=== PATIENT | female | born 1960 | race Caucasian/White ===

== ENCOUNTER → 2016-10-07 | Outpatient (REF) | payer MEDICARE | LOC: M LAB REF 10:33 | PROVIDERS: ATTEND Internal Medicine Medical Oncology | DX: D75.1 Secondary polycythemia (principal) ==

== ENCOUNTER → 2017-07-08 | Outpatient (CLI) | payer MEDICARE, MEDICAID ==
--- NOTE | 2017-07-08 15:47 | REP ---
Duplex extremity venous ultrasound: Left lower extremity. History: Left calf pain. Findings: The deep veins are anechoic and fully compressible from the groin to the popliteal fossa in the left lower extremity. Color flow imaging is homogeneous. Spectral Doppler interrogation demonstrates intact respiratory variation in flow and normal manual augmentation of flow. There is no evidence of deep vein thrombosis. There is a complex left medial popliteal fluid collection containing internal debris consistent with a Kay's cyst. This measures 6.7 x 3.5 x 5.6 cm. Impression: 6.7 cm Kay's cyst, otherwise negative left lower extremity duplex venous ultrasound. No evidence of deep vein thrombosis. Signed by King Tellez MD 07/08/2017 03:39 P
== END ==
LOC: M RAD 14:25
PROVIDERS: ATTEND Internal Medicine Medical Oncology
DX: M71.22 Synovial cyst of popliteal space [Baker], left knee (principal)

== ENCOUNTER → 2017-08-11 | Outpatient (REF) | payer MEDICARE, MEDICAID ==
[2017-08-14 00:07] LABS: F8 ACTIVITY FOR F8 PANEL 121 % (57-163); F8 ACTIVITY vWB FOR F8 PANEL 147 % (50-200); F8 ANTIGEN FOR F8 PANEL 255 % (50-200); INTERPRETATION: Note (.)
== END ==
LOC: M LAB REF 13:13
PROVIDERS: ATTEND Internal Medicine Medical Oncology
DX: D68.0 Von Willebrand disease (principal)

== ENCOUNTER → 2017-10-21 | Outpatient (CLI) | payer MEDICARE, MEDICAID | LOC: M ONCR 13:18 | DX: C50.911 Malignant neoplasm of unspecified site of right female breast (principal) | CPT/HCPCS: G0463 ==

== ENCOUNTER 2017-11-17 09:38 | Outpatient (RCR) | payer MEDICARE, MEDICAID | END 2017-11-26 | LOC: M ONCR 09:38 | DX: C50.411 Malignant neoplasm of upper-outer quadrant of right female breast (principal) | CPT/HCPCS: 77300 ==

== ENCOUNTER → 2017-11-17 | Outpatient (CLI) | payer MEDICARE, MEDICAID | LOC: M RAD 09:06 | DX: C50.911 Malignant neoplasm of unspecified site of right female breast (principal) ==

== ENCOUNTER 2017-11-27 10:39 | Outpatient (RCR) | payer MEDICARE, MEDICAID | END 2017-12-27 | LOC: M ONCR 10:39 | DX: C50.411 Malignant neoplasm of upper-outer quadrant of right female breast (principal); Z88.2 Allergy status to sulfonamides | CPT/HCPCS: 77300 ==

== ENCOUNTER → 2018-01-21 | Outpatient (CLI) | payer MEDICARE, MEDICAID | LOC: M ONCR 15:23 | DX: Z08 Encounter for follow-up examination after completed treatment for malignant neoplasm (principal); Z85.3 Personal history of malignant neoplasm of breast; Z92.3 Personal history of irradiation | CPT/HCPCS: G0463 ==

== ENCOUNTER → 2018-08-18 | Outpatient (CLI) | payer MEDICARE, MEDICAID | LOC: M ONCR 09:04 | DX: C50.911 Malignant neoplasm of unspecified site of right female breast (principal); Z92.3 Personal history of irradiation; Z87.891 Personal history of nicotine dependence | CPT/HCPCS: G0463 ==

== ENCOUNTER → 2021-06-28 | Outpatient (CLI) | payer MEDICARE, MEDICAID ==
[~2021-06-28] MED LIST: ADV250INH INH; ALLE10TA62 PO; AMLO1TAB25 PO; CALC-211 PO; CALC600T31 PO; CYMB1CAP4 PO; D400400C PO; FEMA2.5T4 PO; FOLI1TAB11 PO; HUMI40KI SC; INVO300T PO; JARD1TAB3 PO; LANTINJ4 INJ; LANTINJ4 SC; METH2.5T48 PO; OMEP20TA2 PO; PROAAER10 INH; QUIN1TAB4 PO; REPA140I2 SC; TOPR100T PO; TRAM50TA2 PO; TREX7.5T PO; VITATAB54 PO; ZETI10TA16 PO; ZYRT10CA PO
[2021-06-28 16:01] VITALS: BP 148/70
--- NOTE | 2021-06-28 16:10 | REP ---
INDICATION: LEFT BREAST MASS. COMPARISON: None. Comparison mammography June 12, 2021. TECHNIQUE: Craniocaudal and mediolateral views of the left breast are obtained post biopsy. This mammogram was interpreted with the aid of an FDA-approved computer-aided detection system. FINDINGS: Cc and mediolateral views of the left breast demonstrate the needle biopsy marker clip in good position apparently within the soft tissue nodular density in the lateral aspect of the left breast. IMPRESSION: Marker clip in good position. <Electronically signed by Anderson Tellez > 06/28/21 [id number]
--- NOTE | 2021-06-28 16:50 | REP ---
INDICATION: LEFT BREAST MASS. COMPARISON: None. TECHNIQUE: The procedure was performed by Aysha Quinteros [facility], under the direct supervision of Dr. Tellez. The risks and benefits of the procedure were explained to the patient and an informed consent was obtained both verbally and written. Directly prior to the start of the procedure a formal time-out was completed in the procedure room. FINDINGS: Using ultrasound guidance the left breast mass was localized. The skin was prepped and draped in a sterile fashion. Twenty mL of buffered lidocaine was used as a local anesthetic. Using ultrasound guidance a 14 gauge [employer] Marquee coaxial needle biopsy system was inserted and advanced into the left breast mass. Six core biopsy specimens were obtained and sent to pathology for further analysis. A shape 3 marker clip was placed at the biopsy site. The patient tolerated the procedure well and there were no immediate complications. After the appropriate amount of monitored convalescence the patient was discharged from the department. IMPRESSION: 1. Ultrasound-guided left breast biopsy and micro clip placement. <Electronically signed by Aysha Quinteros > 06/28/21 [id number] <Electronically signed by Anderson Tellez > 06/28/21 1642
== END ==
LOC: M WHCPRO 07:50
PROVIDERS: ATTEND Surgery
DX: C50.412 Malignant neoplasm of upper-outer quadrant of left female breast (principal); C50.611 Malignant neoplasm of axillary tail of right female breast

== ENCOUNTER → 2021-10-03 | Outpatient (CLI) | payer MEDICARE | LOC: M PLALAB 10:57 | PROVIDERS: ATTEND Surgery | DX: Z85.3 Personal history of malignant neoplasm of breast (principal) ==

== ENCOUNTER 2021-10-26 07:31 | Outpatient (RCR) | payer MEDICARE ==
[~2021-10-26 07:31] MED LIST changes: +VITATAB47 PO
[2021-11-01] MEDS ORDERED: AROM25TA PO (15:04)
== END 2021-10-29 ==
LOC: M ONCR 07:31
PROVIDERS: ATTEND General Practice
DX: C50.412 Malignant neoplasm of upper-outer quadrant of left female breast (principal)

== ENCOUNTER 2021-11-19 11:41 | Outpatient (RCR) | payer MEDICARE ==
[~2021-11-19 11:41] MED LIST changes: +AROM25TA PO
== END 2021-11-26 ==
LOC: M ONCR 11:41
PROVIDERS: ATTEND General Practice
DX: C50.412 Malignant neoplasm of upper-outer quadrant of left female breast (principal)

== ENCOUNTER → 2022-03-08 | Outpatient (CLI) | payer MEDICARE ==
[~2022-03-08] MED LIST changes: +PROHANCE 279.3MG/ML 15ML VIAL ONE
== END ==
LOC: M PLAIMG 12:17
PROVIDERS: ATTEND Surgery
DX: C50.912 Malignant neoplasm of unspecified site of left female breast (principal)
CPT/HCPCS: A9576; C8908

== ENCOUNTER → 2022-05-15 | Outpatient (CLI) | payer MEDICARE, OTHER, MEDICAID ==
[~2022-05-15] MED LIST changes: +POTA-151 PO; -PROHANCE 279.3MG/ML 15ML VIAL ONE; +REPA420I2; +VENL75TA2 PO
== END ==
LOC: M ONCR 09:00
PROVIDERS: ATTEND General Practice
DX: Z08 Encounter for follow-up examination after completed treatment for malignant neoplasm (principal); Z85.3 Personal history of malignant neoplasm of breast; K74.69 Other cirrhosis of liver; R23.2 Flushing; F17.210 Nicotine dependence, cigarettes, uncomplicated; M06.9 Rheumatoid arthritis, unspecified; Z88.0 Allergy status to penicillin; Z88.1 Allergy status to other antibiotic agents; Z88.2 Allergy status to sulfonamides; Z88.6 Allergy status to analgesic agent; Z88.8 Allergy status to other drugs, medicaments and biological substances; Z79.4 Long term (current) use of insulin; Z79.51 Long term (current) use of inhaled steroids; Z79.811 Long term (current) use of aromatase inhibitors; Z79.899 Other long term (current) drug therapy; Z91.040 Latex allergy status; Z91.041 Radiographic dye allergy status; Z91.048 Other nonmedicinal substance allergy status; Z92.3 Personal history of irradiation; Z90.49 Acquired absence of other specified parts of digestive tract

== ENCOUNTER → 2022-06-10 | Outpatient (CLI) | payer MEDICARE, MEDICAID | LOC: M WHC 08:20 | PROVIDERS: ATTEND Surgery | DX: C50.912 Malignant neoplasm of unspecified site of left female breast (principal) | CPT/HCPCS: 77066; G0279 ==

== ENCOUNTER → 2022-11-15 | Outpatient (CLI) | payer MEDICARE, MEDICAID ==
[~2022-11-15] MED LIST changes: +ALBU2TA PO; +B-12100011 SL; +LISI40TA4; +PANT40TA29; +PROB250C PO; +PROL60SO SC
== END ==
LOC: M ONCR 08:10
PROVIDERS: ATTEND General Practice
DX: C50.412 Malignant neoplasm of upper-outer quadrant of left female breast (principal); K74.60 Unspecified cirrhosis of liver; M06.9 Rheumatoid arthritis, unspecified; Z79.4 Long term (current) use of insulin; Z79.620 Long term (current) use of immunosuppressive biologic; Z79.811 Long term (current) use of aromatase inhibitors; Z88.0 Allergy status to penicillin; Z88.1 Allergy status to other antibiotic agents; Z88.6 Allergy status to analgesic agent; Z88.8 Allergy status to other drugs, medicaments and biological substances; Z88.5 Allergy status to narcotic agent; Z91.040 Latex allergy status; Z92.3 Personal history of irradiation

== ENCOUNTER → 2023-06-10 | Outpatient (CLI) | payer MEDICARE, MEDICAID ==
[~2023-06-10] MED LIST changes: -ALBU2TA PO; +ALBU2TAB13 PO; +EZET10TA58 PO; +GABA600T4 PO; -LISI40TA4; +LISI40TA4 PO; +METO1TAB32 PO; -PANT40TA29; +PANT40TA29 PO; +POTA-298 PO; +TIZA10TA PO; -ZETI10TA16 PO
== END ==
LOC: M WHC 13:34
PROVIDERS: ATTEND Nurse Practitioner Women's Health
DX: Z12.31 Encounter for screening mammogram for malignant neoplasm of breast (principal); Z85.3 Personal history of malignant neoplasm of breast
CPT/HCPCS: 77066; G0279

== ENCOUNTER → 2023-11-11 | Outpatient (CLI) | payer MEDICARE, MEDICAID ==
[~2023-11-11] MED LIST changes: +DEXC1MIS3; +FLUT1BLS5 INH; +GABA800T4 PO; +TIRZ2.5P SQ
== END ==
LOC: M ONCR 11:03
PROVIDERS: ATTEND General Practice
DX: C50.412 Malignant neoplasm of upper-outer quadrant of left female breast (principal); Z98.890 Other specified postprocedural states; Z90.49 Acquired absence of other specified parts of digestive tract; Z92.3 Personal history of irradiation; Z71.2 Person consulting for explanation of examination or test findings; Z79.811 Long term (current) use of aromatase inhibitors; Z79.85 Long-term (current) use of injectable non-insulin antidiabetic drugs; Z88.6 Allergy status to analgesic agent; Z88.0 Allergy status to penicillin; Z88.1 Allergy status to other antibiotic agents; Z88.2 Allergy status to sulfonamides; Z91.018 Allergy to other foods; Z91.040 Latex allergy status; Z88.8 Allergy status to other drugs, medicaments and biological substances; Z79.620 Long term (current) use of immunosuppressive biologic; Z79.899 Other long term (current) drug therapy

== ENCOUNTER 2023-11-19 13:06 | Day surgery (SDC) | payer MEDICARE, MEDICAID ==
[~2023-11-19] VITALS: Ht 165.1 cm; Wt 79.0 kg
[2023-11-19] MEDS: NS 1,000 ML IV ONE (13:56)
[2023-11-19] MEDS ORDERED: LIDOCAINE 2% 100MG/5ML SDV (FOR ANES.) As Ordered ONE (15:21)
[2023-11-19] MEDS ORDERED: propofoL 200 MG/20 ML VIAL As Ordered ONE (15:21)
[2023-11-19 16:23] VITALS: BP 139/79; TEMP 95.7; O2SAT 96
== END 2023-11-19 16:26 | disposition home or self-care (01) ==
LOC: M OPP 13:06
PROVIDERS: ATTEND Internal Medicine Gastroenterology
DX: K74.60 Unspecified cirrhosis of liver (principal); I85.10 Secondary esophageal varices without bleeding; F17.200 Nicotine dependence, unspecified, uncomplicated; I25.10 Atherosclerotic heart disease of native coronary artery without angina pectoris; E11.9 Type 2 diabetes mellitus without complications; G47.30 Sleep apnea, unspecified; Z79.4 Long term (current) use of insulin; Z79.51 Long term (current) use of inhaled steroids; Z79.811 Long term (current) use of aromatase inhibitors; Z79.891 Long term (current) use of opiate analgesic; Z79.899 Other long term (current) drug therapy; Z88.0 Allergy status to penicillin; Z88.2 Allergy status to sulfonamides; Z88.6 Allergy status to analgesic agent; Z88.8 Allergy status to other drugs, medicaments and biological substances; Z91.040 Latex allergy status

== ENCOUNTER → 2024-01-26 | Outpatient (REF) | payer MEDICARE, MEDICAID | LOC: M LAB REF 17:33 | PROVIDERS: ATTEND Ophthalmology | DX: D22.39 Melanocytic nevi of other parts of face (principal) ==

== ENCOUNTER → 2024-11-26 | Outpatient (CLI) | payer MEDICARE, MEDICAID ==
[~2024-11-26] MED LIST changes: -ADV250INH INH; +ADVA1AER9 INH; +AMLO1TAB24; +EXEM25TA PO; +GABA-1490 PO; +GABA-1635 PO; -GABA600T4 PO; -GABA800T4 PO; +OMEP-611 PO; -OMEP20TA2 PO; +OREN125I2; +REPA140I; +REPA140I2; +TIRZ5PEN
== END ==
LOC: M ONCR 13:01
PROVIDERS: ATTEND General Practice
DX: Z08 Encounter for follow-up examination after completed treatment for malignant neoplasm (principal); Z85.3 Personal history of malignant neoplasm of breast; Z79.811 Long term (current) use of aromatase inhibitors; F17.210 Nicotine dependence, cigarettes, uncomplicated; Z88.0 Allergy status to penicillin; Z88.1 Allergy status to other antibiotic agents; Z88.6 Allergy status to analgesic agent; Z88.2 Allergy status to sulfonamides; Z88.8 Allergy status to other drugs, medicaments and biological substances; Z91.048 Other nonmedicinal substance allergy status; Z91.040 Latex allergy status; Z92.3 Personal history of irradiation; Z79.85 Long-term (current) use of injectable non-insulin antidiabetic drugs; Z79.51 Long term (current) use of inhaled steroids; Z79.899 Other long term (current) drug therapy; Z79.620 Long term (current) use of immunosuppressive biologic

== ENCOUNTER → 2025-02-01 | Outpatient (CLI) | payer MEDICARE, MEDICAID ==
[~2025-02-01] MED LIST changes: +DENO60SY2 SC; -PROL60SO SC
== END ==
LOC: M CARPUL 09:25
PROVIDERS: ATTEND Internal Medicine Pulmonary Disease
DX: J44.9 Chronic obstructive pulmonary disease, unspecified (principal)

== ENCOUNTER 2025-04-20 11:39 | Day surgery (SDC) | payer MEDICARE, MEDICAID ==
[~2025-04-20] VITALS: Ht 168.9 cm; Wt 76.2 kg
[~2025-04-20 11:39] MED LIST changes: -AMLO1TAB24; +AMLO1TAB24 PO; +LISI40TA10 PO; -LISI40TA4 PO; +SYMB80INH INH; +VITA400T19 PO; -VITATAB54 PO
[2025-04-20] MEDS ORDERED: LIDOCAINE 2% 100 MG/5 ML SDV (FOR ANES.) As Ordered ONE (12:42)
[2025-04-20 13:45] VITALS: TEMP 98.6
[2025-04-20 13:56] VITALS: BP 148/67; O2SAT 97
== END 2025-04-20 14:15 | disposition home or self-care (01) ==
LOC: M OPP 11:39
PROVIDERS: ATTEND Internal Medicine Gastroenterology
DX: I85.10 Secondary esophageal varices without bleeding (principal); D17.5 Benign lipomatous neoplasm of intra-abdominal organs; K74.60 Unspecified cirrhosis of liver; G47.30 Sleep apnea, unspecified; Z88.0 Allergy status to penicillin; Z88.2 Allergy status to sulfonamides; Z88.8 Allergy status to other drugs, medicaments and biological substances; Z91.040 Latex allergy status; Z91.048 Other nonmedicinal substance allergy status; F17.210 Nicotine dependence, cigarettes, uncomplicated; J45.909 Unspecified asthma, uncomplicated
CPT/HCPCS: 43235; J3010